=== PATIENT | male | born 1945 | race Caucasian/White ===

== ENCOUNTER → 2020-11-17 | Outpatient (CLI) | payer MEDICARE, OTHER ==
[~2020-11-17] MED LIST: ARICEPT10 MG PO; ASPIR-LOW81 MG PO; BASAGLAR K100 UNIT/1 SQ; CLARITIN10 M2 PO; COZAAR100 MG PO; GLIPIZIDE5 MG PO; GLUCOPHAGE1000 MG PO; IMDUR ER TAB 3030 MG PO; LOSARTAN POTASS25 MG PO; NAMENDA10 MG PO; OMEGA 3 1,0001 EACH PO; PLAVIX75 MG PO; RISPERDAL0.5 MG PO; TOPROL XL25 MG PO
== END ==
LOC: LAB 11:53
DX: E87.5 Hyperkalemia (principal)
CPT/HCPCS: 36415; 84132

== ENCOUNTER 2021-02-27 16:33 | Inpatient (IN) | payer MEDICARE, OTHER ==
[~2021-02-27] VITALS: Ht 162.6 cm; Wt 108.0 kg
[2021-02-27 17:03] LABS: HEMOGLOBIN 14.4 gm/dl (14.0-17.5); RED BLOOD COUNT 4.86 M/UL (4.20-5.50); WHITE BLOOD COUNT 13.1 K/UL (4.5-11.0)
[2021-02-27 17:33] LABS: BUN/CREATININE RATIO 21 (0-10)
[2021-02-27] MEDS ORDERED: OMEPRAZOLE20 M1 PO (19:53)
[2021-02-27] MEDS ORDERED: HUMALOG100 UNIT/3 SC (19:54)
[2021-02-28 02:03] LABS: HEMOGLOBIN 13.9 gm/dl (14.0-17.5); RED BLOOD COUNT 4.75 M/UL (4.20-5.50)
[2021-02-28] MEDS ORDERED: LANTUS SOL100 UNIT/1 SQ (19:05)
[2021-02-28] MEDS ORDERED: FLOMAX0.4 MG PO (19:05)
[2021-02-28] MEDS ORDERED: ATORVASTATIN CA40 MG PO (19:06)
[2021-03-02] MEDS ORDERED: ASPIRIN EC81 MG PO (08:15)
[2021-03-02] MEDS ORDERED: JARDIANCE25 MG PO (08:15)
[2021-03-02] MEDS ORDERED: CLOPIDOGREL75 MG PO (08:15)
[2021-03-02] MEDS ORDERED: LASIX20 MG PO (08:15)
[2021-03-02] MEDS ORDERED: PROTONIX 40 MG40 M1 PO ×2 (08:15→08:24)
== END 2021-03-02 10:43 | disposition home or self-care (01) | DRG 247 ==
LOC: ER1 16:33 → CDU 16:40 → CCU 16:40 → CDU 17:00 → CCU 19:50 → PROG CARE 03-01 16:27
PROVIDERS: Family Medicine; ADMIT Internal Medicine Cardiovascular Disease
PROC: 027034Z Dilation of Coronary Artery, One Artery with Drug-eluting Intraluminal Device, Percutaneous Approach (ICD-10-PCS; principal; 2021-02-27)
PROC: 02C03ZZ Extirpation of Matter from Coronary Artery, One Artery, Percutaneous Approach (ICD-10-PCS; 2021-02-27)
PROC: 5A1223Z Performance of Cardiac Pacing, Continuous (ICD-10-PCS; 2021-02-27)
PROC: 4A023N7 Measurement of Cardiac Sampling and Pressure, Left Heart, Percutaneous Approach (ICD-10-PCS; 2021-02-27)
PROC: B2111ZZ Fluoroscopy of Multiple Coronary Arteries using Low Osmolar Contrast (ICD-10-PCS; 2021-02-27)
PROC: B24BZZZ Ultrasonography of Heart with Aorta (ICD-10-PCS; 2021-02-28)
DX: I21.19 ST elevation (STEMI) myocardial infarction involving other coronary artery of inferior wall (principal); Z68.41 Body mass index [BMI] 40.0-44.9, adult; I44.2 Atrioventricular block, complete; Z20.822 Contact with and (suspected) exposure to COVID-19; I12.9 Hypertensive chronic kidney disease with stage 1 through stage 4 chronic kidney disease, or unspecified chronic kidney disease; E78.5 Hyperlipidemia, unspecified; H91.10 Presbycusis, unspecified ear; N18.30 Chronic kidney disease, stage 3 unspecified; E11.22 Type 2 diabetes mellitus with diabetic chronic kidney disease; E66.01 Morbid (severe) obesity due to excess calories; I25.5 Ischemic cardiomyopathy; H91.8X3 Other specified hearing loss, bilateral; N40.0 Benign prostatic hyperplasia without lower urinary tract symptoms; F17.220 Nicotine dependence, chewing tobacco, uncomplicated; I25.10 Atherosclerotic heart disease of native coronary artery without angina pectoris; R00.1 Bradycardia, unspecified; Z95.1 Presence of aortocoronary bypass graft; Z79.4 Long term (current) use of insulin; Z79.01 Long term (current) use of anticoagulants; Z79.82 Long term (current) use of aspirin; Z98.42 Cataract extraction status, left eye; Z98.41 Cataract extraction status, right eye; Z88.6 Allergy status to analgesic agent
CPT/HCPCS: ECHO; 33210; 36415; 71045; 80048; 80053; 80061; 82550; 82553; 82800; 82803; 82962; 83036; 83874; 83880; 84132; 84484; 85025; 85347; 85610; 85730; 92973; 93005; 93306; 96374; 99285; C1757; C1769; C1874; C1887; C1894; J0153; J0461; J1265; J1644; J1650; J2250; J2370; J2405; J2550; J3010; J3246; J7040; Q9965; U0002

== ENCOUNTER → 2021-04-23 | Outpatient (CLI) | payer MEDICARE, OTHER ==
[~2021-04-23] MED LIST changes: +ASPIRIN EC81 MG PO; +ATORVASTATIN CA40 MG PO; +CLOPIDOGREL75 MG PO; +FLOMAX0.4 MG PO; +HUMALOG100 UNIT/3 SC; +JARDIANCE25 MG PO; +LANTUS SOL100 UNIT/1 SQ; +LASIX20 MG PO; +OMEPRAZOLE20 M1 PO; +PROTONIX 40 MG40 M1 PO
== END ==
LOC: HEART 5 08:33
DX: I25.5 Ischemic cardiomyopathy (principal)
CPT/HCPCS: 36415; 82565; 84520; 93306; Q9967

== ENCOUNTER → 2021-04-23 | Outpatient (CLI) | payer MEDICARE, OTHER | LOC: CT 04-20 13:30 | DX: R10.84 Generalized abdominal pain (principal); R19.7 Diarrhea, unspecified; R91.8 Other nonspecific abnormal finding of lung field | CPT/HCPCS: 36415; 82565; 84520; Q9967 ==

== ENCOUNTER → 2021-05-29 | Day surgery (SDC) | payer MEDICARE, OTHER ==
[~2021-05-29] MED LIST changes: +COZAAR50 MG PO; +FISH OIL 1,0001 EACH PO; +NORVASC2.5 MG PO; +PREVACID 24HR15 MG PO; +PROSCAR5 MG PO; +TRULICITY1.5 MG/0.5 SQ; +VITAMIN B-12100 MCG PO; +VITAMIN D21250 MCG PO; +ZETIA10 MG PO
== END | disposition home or self-care (01) ==
LOC: OR 06:45
DX: R10.9 Unspecified abdominal pain (principal); D12.2 Benign neoplasm of ascending colon; D12.3 Benign neoplasm of transverse colon; K57.30 Diverticulosis of large intestine without perforation or abscess without bleeding; K64.0 First degree hemorrhoids; K64.1 Second degree hemorrhoids; K64.4 Residual hemorrhoidal skin tags; K80.20 Calculus of gallbladder without cholecystitis without obstruction; I10 Essential (primary) hypertension; E66.9 Obesity, unspecified; R11.0 Nausea; R19.7 Diarrhea, unspecified; I25.2 Old myocardial infarction; E11.9 Type 2 diabetes mellitus without complications; E78.00 Pure hypercholesterolemia, unspecified; Z88.4 Allergy status to anesthetic agent; Z88.5 Allergy status to narcotic agent; Z79.02 Long term (current) use of antithrombotics/antiplatelets; Z79.82 Long term (current) use of aspirin; Z20.822 Contact with and (suspected) exposure to COVID-19
CPT/HCPCS: 82962; J2704; J7040

== ENCOUNTER → 2021-10-26 | Outpatient (CLI) | payer MEDICARE, OTHER ==
[2021-10-26 09:59] LABS: HEMOGLOBIN 14.7 gm/dl (14.0-17.5); RED BLOOD COUNT 5.1 M/UL (4.20-5.50); WHITE BLOOD COUNT 8.1 K/UL (4.5-11.0)
[2021-10-26 10:42] LABS: BUN/CREATININE RATIO 22 (0-10)
[2021-10-27 10:14] LABS: MICROALB/CREAT RATIO <3 (0-29)
== END ==
LOC: LAB 09:17
PROVIDERS: Family Medicine
DX: E78.5 Hyperlipidemia, unspecified (principal); E11.9 Type 2 diabetes mellitus without complications
CPT/HCPCS: 36415; 80053; 80061; 82043; 82570; 83735; 85027